=== PATIENT | male | born 1955 | race Caucasian/White ===

== ENCOUNTER 2023-02-07 20:06 | Emergency (ER) | payer MEDICARE, BC, SELFPAY ==
[2023-02-07 20:08] VITALS: BP 167/97; PULSE 100; RESP 16; TEMP 36.6; O2SAT 97; BMI 26.9
--- NOTE | 2023-02-07 20:10 | EDS_ITS ---
HPI History of Present Illness Chief Complaint: Constipation [facility] Medical History (Updated 02/07/23 @ 23:[address] oLy Gross, DO) White coat syndrome with high blood pressure but without hypertension Home Medications NK 04/03/22 [History Last Taken Unknown] sulfamethoxazole 800 mg-trimethoprim 160 mg tablet (Bactrim DS) 1 tab PO BID 7 days #14 tabs 02/07/23 [Rx Last Taken Unknown] Allergy/AdvReac Type Severity Reaction Status Date / Time Penicillins Allergy Severe Rash Verified 02/07/23 20:07 novocaine Allergy Severe not sure Uncoded 04/03/22 18:03 was a child Social History Smoking Status: Former smoker EXAM Physical Exam Const Vital Signs: 02/07/23 20:08 Temperature 98 F Temperature Source Temporal Pulse Rate 100 Respiratory Rate 16 Blood Pressure 167/97 H Blood Pressure Mean 120 Pulse Ox 97 MDM MDM MDM Narrative Medical decision making narrative: HISTORY OF PRESENT ILLNESS: 67-year-old male here with constipation concern for My bowel is impacted. He states he has not had a bowel movement for 2 days. He states his last bowel was on 02/05/2023. States he thinks he may have a small bowel obstruction. Denies history abdominal surgery. No nausea or vomiting. REVIEW OF SYSTEMS: Pertinent positives: Constipation, increased frequency and dysuria Pertinent negatives: Melena, hematochezia, nausea or vomiting PHYSICAL EXAM: Nursing triage notes reviewed, Vital signs reviewed Constitutional: please see mdm HENT: MMM Eyes: Pupils equal round and reactive to light, Extraocular muscles intact Neck: No stridor, no JVD, full neck ROM Lungs: Clear to auscultation, No wheezing or rales. No increased work of breathing, no conversational dyspnea, no accessory muscle use, no nasal flaring. No respiratory distress noted Heart: Regular rate and rhythm, No murmurs, No rubs and No gallops, 2+ distal pulses (radial, femoral, posterior tibial) in all extremities Abdomen: Soft, t not particularly tender on exam. Abdominal distention noted. No rigidity, rebound or guarding, no obvious peritoneal signs, no palpable pulsatile abdominal masses, no auscultated abdominal bruit : No CVAT Extremities: No edema Neuro: No focal neurological deficits, cranial nerves II through XII intact, 5/5 strength in all extremities. Intact sensation to light touch in all extremities, 2+ reflexes bilateral patella tendons. Normal gait. No ataxia. Skin: No rash or lesions noted MEDICAL DECISION MAKING: Chief Complaint: Constipation External records reviewed: No recent advanced imaging of the abdomen or pelvis Factors affecting care: none Social determinants of health: Elderly History obtained from others: the patient's Consults: none ALL IMAGES (IF OBTAINED) HAVE BEEN PERSONALLY REVIEWED AND INTERPRETED BY MYSELF. EKG with normal sinus rhythm, normal axis, no intervals, no STEMI MDM Narrative: Patient was hemodynamically stable, afebrile, nontoxic-appearing. Abdominal exam with a mild distended abdomen but no obvious peritoneal signs I considered the following differential diagnosis: Small bowel obstruction, perforation, pancreatitis, constipation I obtained a broad lab and imaging work-up to further elucidate etiology the patient complaints. Obtained a CT scan of the abdomen pelvis with oral and IV contrast. CT scan revealed a large bladder. This is consistent with urinary retention. Patient had no back pain or focal lower extremity neurologic deficits to suggest a space-occupying lesion of the spine. A Temple was placed with drainage of 4000 and cc of urine. This is likely etiology of his complaints. After Temple catheter was placed and urine was drained patient reported complete resolution of symptoms. Temple care discussed. Bactrim given for antimicrobial prophylaxis and urology follow-up arranged. The patient and/or family, caregivers express understanding. The patient and/or family, caregivers agrees with the plan. Shared decision making: I will have a discussion with the patient and or visitors regarding risk/benefits of further testing or admission. They will be made aware of of the risk/benefits inherent in this decision they will be given the opportunity to voice understanding. Total critical care time today provided was at least 0 minutes. This excludes separately billable procedures. Critical care time (if documented) is secondary to the patient having high probability of clinically significant/life threatening deterioration in the patient's condition which required my urgent intervention. Lab Data Attestation: I reviewed the patient's lab results. Lab results narrative: CBC with leukocytosis suggestive of systemic inflammation, no anemia, no thrombocytopenia BMP with hyponatremia, no anion gap to suggest endorgan hypoperfusion, acute kidney injury Lactate is wnl indicating no end-organ hypoperfusion and/or hypoxia. LFTs show no evidence of hepatobiliary pathology. UA with evidence of inflammation Labs: Laboratory Results - last 24 hr 02/07/23 02/07/23 20:25 20:30 WBC 12.1 H RBC 4.50 L Hgb 13.4 Hct 40.3 MCV 89.6 MCH 29.8 MCHC 33.3 RDW Std Deviation 41.0 RDW Coeff of [place] 12.5 Plt Count 177 MPV 10.3 Immature Gran % (Auto) 0.200 Neut % (Auto) 66.7 Lymph % (Auto) 22.2 [place] % (Auto) 9.9 Eos % (Auto) 0.8 Baso % (Auto) 0.2 Absolute Neuts (auto) 8.1 H Absolute Lymphs (auto) 2.69 Nucleated RBC % 0 Sodium 128 L Potassium 3.5 Chloride 94 L Carbon Dioxide 27.0 Anion Gap 7 BUN 22 H Creatinine 1.56 H Estim Creat Clear Calc 50.43 Est GFR (MDRD) Af Amer 57 L Est GFR (MDRD) Non-Af 47 L BUN/Creatinine Ratio 14.1 Glucose 150 H Lactic Acid 0.9 Calcium 9.0 Total Bilirubin 0.90 AST 26 ALT 28 Alkaline Phosphatase 69 Total Protein 7.2 Albumin 3.6 Globulin 3.6 Albumin/Globulin Ratio 1.0 Lipase 24 Urine Color Yellow Urine Clarity Sl. Cloudy Urine pH 5.0 Ur Specific [place] 1.010 Urine Protein 15 H Urine Glucose (UA) Normal Urine Ketones Negative Urine Occult Blood 10 H Urine Nitrite Negative Urine Bilirubin Negative Urine Urobilinogen Normal Ur Leukocyte Esterase 500 H Radiography Diagnostic Testing: Clinical Impression(s) from Imaging Studies Abdomen/Pelvis CT 02/07/23 20:17 IMPRESSION: Bilateral hydronephrosis in the kidneys. Bilateral hydroureters. Markedly distended urinary bladder. Bladder outlet obstruction or neurogenic bladder cannot be excluded. Air-fluid levels in the colon. Colonic diverticulosis. Electronically Signed: Aj Valerio DO at 23:08 EDT Reading Location ID and State: [facility] / [place] Tel [phone], Service support , Discharge Plan Triage Chief Complaint: Constipation ED Provider: Loy Gross Dx/Rx/DC Orders Clinical Impression: ELISHA (acute kidney injury), Urinary retention, Acute hyponatremia Instructions: ED Temple Catheter, Care, ED Urinary Retention, Male Prescriptions: New sulfamethoxazole-trimethoprim [Bactrim DS] 800-160 mg tablet 1 tab PO BID 7 Days Qty: 14 0RF No Action NK Primary Care Provider: Marta Zepeda NP Referrals: Marta Zepeda NP, [employer] [Primary Care Provider] - Giovanni Luis MD [Med Staff - Active Staff] - Activity Restrictions/Additional Instructions: Thank you for trusting us with your care today! Please take Tylenol (2 pills, 650 mg), ibuprofen (2 pills, 400 mg) every 6 hours as needed for pain and fever control. Please take antibiotics as prescribed. Please keep complete entire course. Please return to the emergency department if your symptoms change or worsen. Specifically develop fever, sweating, you lose consciousness. Develop decreased urine output from your Temple. Please follow with your Urology for further outpatient evaluation and management. Disposition Disposition: Home, Self Care
--- NOTE | 2023-02-07 20:17 | EKG12_ITS ---
Test Reason : DYSRYTHMIA Blood Pressure : / mmHG Vent. Rate : 098 BPM Atrial Rate : 098 BPM P-R Int : 162 ms QRS Dur : 108 ms QT Int : 374 ms P-R-T Axes : 020 009 015 degrees QTc Int : 477 ms Normal sinus rhythm Normal ECG Confirmed by RENETTA ANDREW, LIANE ([id number]), research editor WILMER WEBB ([id number]) on 02/08/2023 1:32:10 PM Referred By: Confirmed By:LIANE JACKSON MD
--- NOTE | 2023-02-07 20:17 | CT_ITS ---
STUDY: CT ABDOMEN AND PELVIS WITH CONTRAST REASON FOR EXAM: Male, 67 years old. Abdominal distention r/o small bowel obstruction RADIATION DOSAGE (If Supplied By Facility): CTDIvol = ( 18.47 ) mGy, DLP = ( 1799.49 ) mGycm TECHNIQUE: Transaxial images were obtained from the dome of the diaphragm to the symphysis pubis without oral contrast. Oral and amp; IV Gastrografin and amp; 100mL Isovue-370 was administered. Sagittal and coronal images were reconstructed. Individualized dose optimization techniques were used for this CT. COMPARISON: None. FINDINGS: The visualized lung bases are unremarkable. The visualized portions of the heart are within normal limits. Subcentimeter cysts in the liver. Normal gallbladder and extrahepatic biliary system. Normal spleen. Normal pancreas. Normal bilateral adrenal glands. Bilateral hydronephrosis in the kidneys. Bilateral hydroureters. Normal visualized stomach. Normal small intestine. Air-fluid level in the colon. Mild colonic diverticulosis. The appendix is visualized and appears normal. Normal abdominal aorta. Normal inferior vena cava. Normal retroperitoneum. Markedly distended urinary bladder. Bladder outlet obstruction or neurogenic bladder cannot be excluded. Normal abdominal wall. Normal osseous structures. CT/Abdomen/Pelvis WITH Contrast IMPRESSION: Bilateral hydronephrosis in the kidneys. Bilateral hydroureters. Markedly distended urinary bladder. Bladder outlet obstruction or neurogenic bladder cannot be excluded. Air-fluid levels in the colon. Colonic diverticulosis. Electronically Signed: Aj Valerio DO at 23:08 EDT ,
[2023-02-07 20:32] LABS: Absolute Lymphocyte Count 2.69 X10^3/uL (0.83-4.51); Absolute Neutrophil Count 8.1 X10^3/uL (2.0-7.7); Basophil# 0.03 X10^3/uL; Basophil% 0.2 % (0-1); Eosinophils% 0.8 % (0-5); Hematocrit 40.3 % (40-54); Hemoglobin 13.4 g/dL (13.0-16.5); Lymphocyte # 2.69 X10^3/ul (0.83-4.51); Lymphocyte % 22.2 % (19-41); Mean Corp Hgb Conc 33.3 g/dL (32-36); Mean Corpuscular Hgb 29.8 pg (27.0-32.0); Mean Corpuscular Volume 89.6 fL (80-94); Mean Platelet Vol. 10.3 fl (6.2-12.0); Monocyte% 9.9 % (0-10); NRBC Flagged by Analyzer 0 % (0-5); Neutrophil # 8.06 X10^3/uL (2.7-7.7); Neutrophil % 66.7 % (47-70); Platelet Count 177 K/mm3 (150-450); RBC Distribution Width CV 12.5 % (11.6-14.6); White Blood Count 12.1 K/mm3 (4.4-11.0)
[2023-02-07 20:40] LABS: Color, Urine Yellow (Yellow); Glucose, Dipstick Normal (Normal); Ketone-Dipstick Negative (Negative); Leukocyte Esterase-Dipstick 500 /ul (Negative); Nitrite-Dipstick Negative (Negative); Occult Blood-Urine 10 /ul (Negative); Protein-Dipstick 15 mg/dl (Negative); Urine Bilirubin Dipstick Negative (Negative); Urine Clarity Sl. Cloudy (Clear); Urine Urobilinogen Normal (Normal)
[2023-02-07 20:49] LABS: AST(SGOT) 26 U/L (15-37); Alanine Aminotransfer ALT/SGPT 28 U/L (16-61); Albumin, Serum 3.6 g/dL (3.2-5.0); Alkaline Phosphatase 69 U/L (45-117); Anion Gap 7 (5-15); BUN 22 mg/dL (7-18); BUN/Creat Ratio 14.1 RATIO (10-20); Chloride 94 mmol/L (98-107); Creatinine, Serum 1.56 mg/dL (0.70-1.30); EST Glomerular Filtration Rate 47 mL/min (>60); Est Glom Filt Rate - Afr Amer 57 mL/min (>60); Estimated Creatinine Clearance 50.43 ml/min; Globulin 3.6 g/dL (2.2-4.2); Glucose 150 mg/dL (74-106); Lipase 24 U/L (13-75); Potassium 3.5 mmol/L (3.5-5.1); Protein, Total 7.2 g/dL (6.4-8.2); Sodium Level 128 mmol/L (136-145)
[2023-02-07] MEDS: 0.9% Normal Saline 1,000 ML 1000 ML IV (20:49)
[2023-02-07] MEDS: Ondansetron 4 MG/2 ML Vial IV (20:50)
[2023-02-07 21:18] LABS: Lactic Acid 0.9 mmol/L (0.4-1.9)
== END 2023-02-08 00:15 | disposition home or self-care (01) ==
PROVIDERS: Emergency Provider Emergency Medicine; PCP Nurse Practitioner; Visit Provider Emergency Medicine
DX: N17.9 Acute kidney failure, unspecified (principal); R33.9 Retention of urine, unspecified; E87.1 Hypo-osmolality and hyponatremia; R03.0 Elevated blood-pressure reading, without diagnosis of hypertension; Z87.891 Personal history of nicotine dependence
CPT/HCPCS: 74177; 80053; 81002; 83605; 83690; 85025; 93005; 96361; 96374; 99282; J7030; Q9967; A4216; J2405

== ENCOUNTER → 2023-02-11 | Outpatient (CLI) | payer MEDICARE, BC, SELFPAY ==
[2023-02-11 10:57] LABS: Anion Gap 5 (5-15); BUN 13 mg/dL (7-18); BUN/Creat Ratio 11.2 RATIO (10-20); Calcium,Total 9.6 mg/dL (8.5-10.1); Chloride 105 mmol/L (98-107); Creatinine, Serum 1.16 mg/dL (0.70-1.30); EST Glomerular Filtration Rate 67 mL/min (>60); Est Glom Filt Rate - Afr Amer 81 mL/min (>60); Glucose 95 mg/dL (74-106); PSA,Total- Diagnostic 2.12 ng/mL (0.0-4.0); Potassium 4.1 mmol/L (3.5-5.1); Sodium Level 139 mmol/L (136-145)
== END | disposition home or self-care (01) ==
PROVIDERS: PCP Nurse Practitioner; Referring Provider Urology; Visit Provider Urology
DX: N40.1 Benign prostatic hyperplasia with lower urinary tract symptoms (principal)
CPT/HCPCS: 36415; 80048; 84153

== ENCOUNTER → 2024-09-21 | Outpatient (CLI) | payer MEDICARE, BC, SELFPAY ==
[2024-09-21 11:41] LABS: PSA,Total - Annual Screen 1.66 ng/mL (0.02-4.00)
== END | disposition home or self-care (01) ==
LOC: LAB 10:20
PROVIDERS: PCP Nurse Practitioner; Referring Provider Nurse Practitioner; Visit Provider Nurse Practitioner
DX: Z12.5 Encounter for screening for malignant neoplasm of prostate (principal)
CPT/HCPCS: 36415; 84153; G0103